=== PATIENT | male | born 1960 | race Caucasian/White ===

== ENCOUNTER 2021-03-28 03:35 | Emergency (ER) | payer OTHER, MEDICAID, SELFPAY ==
[2021-03-28 03:45] VITALS: BP 197/101; PULSE 86; RESP 14; TEMP 36.6; O2SAT 99; BMI 25.8
[2021-03-28] MEDS: LIDOCAINE 2% (GLYDO) 6 ML GEL TOP (03:49)
--- NOTE | 2021-03-28 05:14 | PC.NURSE ---
leg bag placed,has used them before.
--- NOTE | 2021-03-28 05:33 | ED.MALEGU ---
HPI - Male Genitourinary General Chief complaint: Urogenital-Male Stated complaint: unable to pee Time Seen by Provider: 03/28/21 04:37 Source: patient Mode of arrival: Ambulatory History of Present Illness HPI Narrative: 60-year-old gentleman presents with a history of hypertension and acute urinary retention. He has had issues with this before and does have Flomax available at home he states that he has not been taking any of his medications recently he also notes that he has a large right inguinal hernia that has been recommended to be repaired but he has been anxious about actually scheduling this. He states he had not taking any new medications or use any [id number] medications recently. He has been unable to void all day in comes in acutely uncomfortable. He describes no fevers, cough, chest pain no abdominal pain aside from the mild right inguinal discomfort associated with his known hernia. He has been stooling normally. He did not complain of any hematuria or dysuria prior to the acute urinary retention. Related Data Allergies Allergy/AdvReac Type Severity Reaction Status Date / Time No Known Drug Allergies Allergy Verified 03/28/21 03:48 Review of Systems Review of Systems Narrative: Remainder of complete review of systems is otherwise unremarkable except for that included in the HPI. Patient History Medical History Acute urinary retention BPH (benign prostatic hyperplasia) Hypertension Social History Smoking Status: Never smoker Smoking Status: Never smoker Substance Use Type: marijuana Exam Narrative Exam Narrative: General: Alert appropriate in no acute distress Respiratory: Able to speak in full sentences, no obvious respiratory distress Cardiac: Regular rate and rhythm no murmurs Abdomen: Prior to Arnold catheter, significantly distended and tender. After Arnold catheter distension is resolved and pain is resolved. Skin: No obvious rashes, warm and dry Neurologic: Grossly intact no obvious asymmetries or abnormalities Psych: appropriate insight and affect, cooperative Initial Vital Signs Initial Vital Signs: Vital Signs Temperature 97.9 F 03/28/21 03:45 Pulse Rate 86 03/28/21 03:45 Respiratory Rate 14 03/28/21 03:45 Blood Pressure 197/101 H 03/28/21 03:45 Pulse Oximetry 99 03/28/21 03:45 Course Orders Ordered: Discontinued Medications Lidocaine HCl (Lidocaine Jelly 2% 5 Ml) 1 applic TOP NOW ONE Stop: 03/28/21 03:43 Lidocaine HCl (Lidocaine 2% (Glydo) 6 Ml Gel) 6 ml TOP NOW ONE Stop: 03/28/21 03:46 Last Admin: 03/28/21 03:49 Dose: 6 ml Documented by: BETHEL Vital Signs Vital signs: Vital Signs - 8 hr 03/28/21 03:45 Temperature 97.9 F Pulse Rate 86 Respiratory Rate 14 Blood Pressure 197/101 H Pulse Oximetry 99 MDM - Male Genitourinary MDM Narrative Medical decision making narrative: 60-year-old gentleman with a history of benign prostatic hypertrophy all previously had been on Flomax however has not been taking it recently. He states he took 2 prior to presenting to the emergency department. He notes he has not been taking his blood pressure medications either. In the emergency department a Arnold catheter is placed without complication at 800 cc of clear yellow urine are drained to the patient's significant relief. He is given instructions on Arnold catheter care and a leg bag. Will have him continue his daily Flomax follow-up with his primary care physician to talk about his BPH and help him remove the Arnold catheter later this week. He is safe for home discharge Discharge Plan Departure Patient Disposition: Home Clinical Impression: Acute retention of urine Instructions: DI for Urinary Retention in Men Activity Restrictions/Additional Instructions: Thank you for coming in today I suspect that you are unable to go to the bathroom because your prostate is too large. You do need to restart the Flomax to help prevent this problem. We put a Arnold catheter in today, 800 cc of urine was returned. Your given leg bag as well as a regular size bag. You will need to schedule an appointment with your primary care physician later this week to have the catheter removed and to discuss your blood pressure and continued use of Flomax. If you have worsening symptoms or develops new findings, please feel free to return to the ER
[2021-03-28 05:38] VITALS: BP 141/78; PULSE 85; RESP 20; O2SAT 99
== END 2021-03-28 05:50 | disposition home or self-care (01) ==
PROVIDERS: Emergency Provider Emergency Medicine
DX: R33.9 Retention of urine, unspecified (principal); Z91.14 Patient's other noncompliance with medication regimen
CPT/HCPCS: 99282; 99283